=== PATIENT | male | born 2000 | race Caucasian/White ===

== ENCOUNTER 2020-06-25 21:43 | Emergency (ER) | payer SELFPAY ==
[2020-06-25 22:14] LABS: Mean Corpuscular Volume 89.4 fL (78.0-98.0)
[2020-06-25 22:20] LABS: Hemoglobin 15.2 g/dL (14.0-18.0); Mean Corpuscular HGB CONC 32.4 g/dL (32.0-36.0); Mean Corpuscular Hemoglobin 28.9 pg (25.0-35.0); Mean Platelet Volume 7.3 fL (7.4-10.4); Platelet Count 593 thou/uL (130-400); RBC Distribution Width 12.6 % (11.5-14.5); Red Blood Cell (RBC) Count 5.27 mill/uL (4.00-5.20); White Blood Cell (WBC) Count 25.1 thou/uL (4.8-10.8)
[2020-06-25 22:21] LABS: Band 3 % (5-11); Lymphocytes 12 % (28-48); MDiff Complete? YES; Metamyelocyte 1 % (0-0); Monocytes 12 % (0-4); Neutrophil 70 % (31-61); Platelet Morphology Comment Appears Increased
[2020-06-25 22:28] LABS: ALT (SGPT) 17 U/L (8-55); AST (SGOT) 22 U/L (5-34); Albumin 5.4 g/dL (3.5-5.0); Alkaline Phosphatase 92 U/L (50-130); Anion Gap 27 mmol/L (10-20); BUN (Urea Nitrogen) 11 mg/dL (8.9-20.6); Bilirubin, Total 0.9 mg/dL (0.2-1.2); Calc. Creatinine Clearance 0 mL/min (70-130); Calcium 9.6 mg/dL (7.8-10.44); Carbon Dioxide 16 mmol/L (22-29); Chloride 99 mmol/L (98-107); Globulin 3.5 g/dL (2.4-3.5); Glucose 127 mg/dL (70-105); Potassium 3.9 mmol/L (3.5-5.1); Protein, Total 8.9 g/dL (6.0-8.3); Sodium 138 mmol/L (136-145)
[2020-06-26 01:38] LABS: Cocaine Metabolite Screen Not Detected (NotDetected); Medtox Reader # READER 1; Methamphetamine Detected (NotDetected); Opiate Screen Not Detected (NotDetected); Phencyclidine (PCP) Not Detected (NotDetected); THC/Cannabinoid Screen Detected (NotDetected)
[2020-06-26 01:39] LABS: Amphetamine Detected (NotDetected); Barbiturates Screen Not Detected (NotDetected); Benzodiazepine Screen Not Detected (NotDetected); Medtox Control Line Valid? VALID (VALID); Methadone Not Detected (NotDetected); Oxycodone Screen Not Detected (NotDetected); Tricyclic Screen Not Detected (NotDetected)
== END 2020-06-26 06:30 | disposition home or self-care (01) ==
LOC: ERS 21:43
DX: F15.10 Other stimulant abuse, uncomplicated (principal); F22 Delusional disorders; F17.210 Nicotine dependence, cigarettes, uncomplicated
CPT/HCPCS: 36415; 80053; 80306; 85025; 93005